=== PATIENT | female | born 1960 | race Caucasian/White ===

== ENCOUNTER 2016-12-31 19:15 | Emergency (ER) | payer OTHER ==
[2016-12-31 19:50] VITALS: BP 104/62
[2016-12-31] MEDS ORDERED: Phenazopyridine TAB* 100 MG PO ONE ×2 (20:51)
[2016-12-31] MEDS ORDERED: Sulfamethox/Trimethoprim DS 800/160* TAB PO ONE ×2 (20:52→20:53)
--- NOTE | 2016-12-31 21:33 | UC ---
Solange Pham Alfonso, scribed for Barrie Orona MD on 12/31/16 at 2047 . Complaint Female HPI - HPI Summary HPI Summary: This patient is a 56 year old F presenting to [facility] with a chief complaint of dysuria since a few hours ago. The CC is described as burning. Pt rates the pain 1/10 in severity. Symptoms aggravated and alleviated by nothing. Pt reports increased urinary frequency, and suprapubic abdominal discomfort. Pt denies abdominal PSHx. Patient medications reviewed this visit. - History Of Current Complaint Chief Complaint: UCGU Stated Complaint: POSS UTI Time Seen by Provider: 12/31/16 20:37 Hx Obtained From: Patient Onset/Duration: Sudden Onset, Lasting Hours - a few, Still Present Timing: Constant Severity Initially: Mild Severity Currently: Mild Pain Intensity: 1 Pain Scale Used: 0-10 Numeric Character: Burning Aggravating Factor(s): Nothing Alleviating Factor(s): Nothing Associated Signs And Symptoms: Negative: Fever - Allergies/Home Medications Allergies/Adverse Reactions: Allergies Allergy/AdvReac Type Severity Reaction Status Date / Time Codeine Allergy Rash And Verified 03/21/16 13:02 Itching Home Medications: Home Medications Adalimumab [Humira] 10 mg SC 12/31/16 [History] Folic Acid TAB* [Folvite TAB*] 1 mg PO DAILY 12/31/16 [History Confirmed ] PMH/Surg Hx/FS Hx/Imm Hx - Surgical History Surgical History: Yes Surgery Procedure, Year, and Place: cysts removal from right thumb 2005, accoustic neuroma removed 1995 - Family History Known Family History: Positive: Other - Prostate cancer, skin cancer Family History: No FHx breast cancer - Social History Alcohol Use: None Substance Use Type: None Smoking Status (MU): Never Smoked Tobacco When Did the Patient Quit Smoking/Using Tobacco: 05/13/91 Household Exposure Type: Cigarettes - Immunization History Most Recent Influenza Vaccination: 2014 Most Recent Tetanus Shot: utd Review of Systems Constitutional: Other - Negative fever Gastrointestinal: Abdominal Pain - Suprapubic abdominal discomfort. Genitourinary: Dysuria - burning, Frequency - Increased All Other Systems Reviewed And Are Negative: Yes Physical Exam Triage Information Reviewed: Yes Appearance: Well-Appearing, No Pain Distress Vital Signs: Initial Vital Signs Temp 99.0 F 12/31/16 19:47 Pulse 80 12/31/16 19:47 Resp 18 12/31/16 19:47 BP 104/62 12/31/16 19:47 Pulse Ox 99 12/31/16 19:47 Vital Signs Reviewed: Yes Eyes: Positive: Other: - EOMI KATY ENT: Positive: Normal ENT inspection Neck: Positive: Supple, Nontender Respiratory: Positive: Chest non-tender, Lungs clear, Normal breath sounds Cardiovascular: Positive: RRR Abdomen Description: Positive: Soft, Other: - Positive minimal RLQ tenderness Bowel Sounds: Positive: Present Musculoskeletal: Positive: Strength Intact, ROM Intact Neurological: Positive: Alert Psychological: Positive: Age Appropriate Behavior Skin Exam: Normal Complaint Female Dx - Course Course Of Treatment: ON EXAM FOUND MINIMAL RLQ TENDERNESS WITHOUT REBOUND. PATIENT REPORTS SHE JUST NOTICED THE RLQ DISCOMFORT. I DISCUSSED THE DDX FOR RLQ PAIN TO INCLUDE KIDNEY STONE AND APPENDICITIS. PATIENT KNOW TO GET SEEN AGAIN IN THE ED IF THE PAIN PERSISTS OR WORSENS. WE DISCUSSED TREATING THE DYSURIA AN UTI AND TO GET RECHECKED IF NOT COMPLETELY IMPROVED. - Differential Dx/Diagnosis Provider Diagnoses: DYURIA AND RLQ PAIN Discharge - Discharge Plan Condition: Stable Disposition: HOME Prescriptions: Phenazopyridine TAB* [Pyridium 100 mg TAB*] 100 mg PO TID PRN #8 tab PRN Reason: Pain Sulfamethox/Trimethoprim DS* [Bactrim DS 800/160 TAB*] 1 tab PO BID #12 tab Patient Education Materials: Acute Abdominal Pain (ED), Dysuria (ED) Referrals: Mely Sharma MD [Primary Care Provider] - Additional Instructions: FOLLOW UP WITH YOUR DOCTOR. GET RECHECKED FOR ANY WORSENING OF YOUR CONDITION; PERSISTENT OR WORSE ABDOMINAL PAIN, FEVER, YOU FEEL ILL OR QUESTIONS OR CONCERNS. The documentation as recorded by the Solange claire Alfonso accurately reflects the service I personally performed and the decisions made by me, Barrie Orona MD.
== END 2016-12-31 21:05 | disposition home or self-care (01) ==
LOC: UCEAST 19:15
DX: R30.0 Dysuria (principal); R10.31 Right lower quadrant pain
CPT/HCPCS: 81003; 99212; A9270-GY; G0463

== ENCOUNTER → 2017-05-06 08:51 | Emergency (ER) | payer OTHER ==
[~2017-05-06 08:51] MED LIST: Meclizine TAB* 12.5 MG PO ONE; NS 0.9% 1000 ML* 1,000 ML IV ONE; Potassium Chlor TAB* 20 MEQ TAB.ER PO ONE
[2017-05-06 10:03] LABS: Hematocrit 42 % (35-47); Hemoglobin 13.7 g/dl (12.0-16.0); Mean Corpuscular HGB Conc 33 g/dl (31-36); Mean Corpuscular Hemoglobin 29 pg (27-31); Mean Corpuscular Volume 88 fL (80-97); Mean Platelet Volume 8 um3 (7.4-10.4); Red Blood Count 4.75 10^6/ul (4.0-5.4); Red Cell Distribution Width 14 % (10.5-15); White Blood Count 5.2 10^3/ul (3.5-10.8)
[2017-05-06 10:14] LABS: ALT 85 U/L (7-52); AST 57 U/L (13-39); Albumin 4.5 g/dL (3.2-5.2); Alkaline Phosphatase 103 U/L (34-104); Anion Gap 6 mmol/L (2-11); BUN/Creatinine Ratio 16.2 (8-20); Blood Urea Nitrogen 12 mg/dL (6-24); C Reactive Protein 1.04 mg/L (< 5.00); CO2 Carbon Dioxide 30 mmol/L (22-32); Calcium 10.1 mg/dL (8.6-10.3); Chloride 101 mmol/L (101-111); Creatine Kinase 40 U/L (10-223); EGFR Non-African American 80.9 (>60); Globulin 3.4 g/dL (2-4); Glucose 79 mg/dL (70-100); Magnesium 1.9 mg/dL (1.9-2.7); Potassium 3.4 mmol/L (3.5-5.0); Sodium 137 mmol/L (133-145); Total Protein 7.9 g/dL (6.4-8.9)
--- NOTE | 2017-05-06 10:24 | RAD ---
INDICATION: Dizziness COMPARISON: Most recent comparison chest x-rays dated March 07, 2016 TECHNIQUE: PA and lateral views of the chest were obtained. FINDINGS: The heart and mediastinum are normal in size and contour. The lungs are grossly clear. There is no evidence of large pleural effusion. Visualized bones are normal for the patient's age. There is no radiographic evidence of free air beneath the diaphragm IMPRESSION: No radiographic evidence of acute cardiopulmonary disease.
--- NOTE | 2017-05-06 10:27 | RAD ---
INDICATION: Dizziness. Relevant surgical history includes "acoustic neuroma removed 1995" COMPARISON: None. TECHNIQUE: Contiguous axial sections of the brain were obtained from the skull base to the vertex without contrast. FINDINGS: The ventricles, cisterns and sulci are within normal limits. The weeks-white matter differentiation is adequately maintained and there is no sulcal effacement. No significant focal abnormality or mass effect is present. There is no evidence for intracranial hemorrhage. No significant focal osseous abnormality is present. The visualized portion of the paranasal sinuses and mastoid air cells appear clear. IMPRESSION: Normal CT of the brain.
[2017-05-06 10:32] LABS: Alcohol < 10 mg/dL (<10)
[2017-05-06 10:46] LABS: TSH (Thyroid Stimulating Horm) 1.25 mcIU/mL (0.34-5.60)
[2017-05-06 11:45] VITALS: BP 106/62
[2017-05-06 11:51] LABS: Benzodiazepine Urine Screen None Detected (None Detect)
[2017-05-06 11:58] LABS: Urine Bacteria Absent (Absent); Urine Bilirubin Negative (Negative); Urine Glucose Negative (Negative); Urine Nitrite Negative (Negative)
--- NOTE | 2017-05-06 15:53 | ED ---
Eliu Pham Abhishek, scribed for Lg Herron MD on 05/06/17 at 0941 . Neurological HPI - HPI Summary HPI Summary: This patient is a 56 year old F presenting to [facility] with a chief complaint of weakness since 2 weeks. She states the chief complain was a sudden onset of weakness on all her extremities. The patient rates the pain 0/10 in severity. Symptoms aggravated by nothing. Symptoms alleviated by remaining in supine position. Patient reports dizziness described as room spinning, blurred vision , chills, and tremors. - History of Current Complaint Chief Complaint: EDWeakness Stated Complaint: DIZZY/LOSS OF BALANCE Time Seen by Provider: 05/06/17 09:27 Hx Obtained From: Patient Onset/Duration: Sudden Onset, Started weeks ago - 2 weeks ago, Still Present Timing: Sudden Onset Pain Intensity: 0 Pain Scale Used: 0-10 Numeric Character: Room Spinning, Dizzy, Other: - Blurred vision Aggravating: Nothing Alleviating: Lying Down Associated Signs and Symptoms: Positive: Visual Changes - blurred vision, Weakness - all her extremities - Allergy/Home Medications Allergies/Adverse Reactions: Allergies Allergy/AdvReac Type Severity Reaction Status Date / Time Codeine Allergy Rash And Verified 03/21/16 13:02 Itching PMH/Surg Hx/FS Hx/Imm Hx Endocrine/Hematology History: Denies: Hx Diabetes Cardiovascular History: Reports: Other Cardiovascular Problems/Disorders - MITRAL VALVE PROLAPSE Denies: Hx Hypertension, Hx Pacemaker/ICD Respiratory History: Denies: Hx Asthma History: Denies: Hx Dialysis, Hx Renal Disease Musculoskeletal History: Reports: Hx Rheumatoid Arthritis Sensory History: Denies: Hx Hearing Aid Psychiatric History: Reports: Hx Panic Disorder - Cancer History Hx Chemotherapy: No Hx Radiation Therapy: No - Surgical History Surgery Procedure, Year, and Place: cysts removal from right thumb 2005, accoustic neuroma removed 1995 Infectious Disease History: No Infectious Disease History: Denies: History Other Infectious Disease, Traveled Outside the [place] in Last 30 Days - Family History Known Family History: Positive: Other - Prostate cancer, skin cancer Family History: No FHx breast cancer - Social History Alcohol Use: None Substance Use Type: Reports: None Smoking Status (MU): Never Smoked Tobacco Review of Systems Positive: Chills Eyes: Negative ENT: Negative Cardiovascular: Negative Gastrointestinal: Negative Genitourinary: Negative Positive: Other - Tremors Skin: Negative Neurological: Other - dizziness described as room spinning", blurred vision Psychological: Normal All Other Systems Reviewed And Are Negative: Yes Physical Exam - Summary Physical Exam Summary: VITAL SIGNS: Reviewed. GENERAL: ~Patient is a well-developed and nourished (MALE OR FEMALE) who is lying comfortable in the stretcher. ~Patient is not in any acute respiratory distress. HEAD AND FACE: No signs of trauma. ~No ecchymosis, hematomas or skull depressions. No sinus tenderness. EYES: PERRLA, EOMI x 2, No injected conjunctiva, no nystagmus. EARS: Hearing grossly intact. Ear canals and tympanic membranes are within normal limits. MOUTH: Oropharynx within normal limits. NECK: Supple, trachea is midline, no adenopathy, no JVD, no carotid bruit, no c- spine tenderness, neck with full ROM. CHEST: Symmetric, no tenderness at palpation LUNGS: Clear to auscultation bilaterally. No wheezing or crackles. CVS: Regular rate and rhythm, S1 and S2 present, no murmurs or gallops appreciated. ABDOMEN: Soft, non-tender. No signs of distention. No rebound no guarding, and no masses palpated. Bowel sounds are normal. EXTREMITIES: FROM in all major joints, no edema, no cyanosis or clubbing. NEURO: Alert and oriented x 3. No acute neurological deficits. Speech is normal and follows commands. SKIN: Dry and warm Triage Information Reviewed: Yes Vital Signs On Initial Exam: Initial Vitals Temp Pulse Resp BP Pulse Ox 98.4 F 101 16 109/67 99 05/06/17 08:55 05/06/17 08:55 05/06/17 08:55 05/06/17 08:55 05/06/17 08:55 Vital Signs Reviewed: Yes - [place] Coma Scale Coma Scale Total: 15 Diagnostics - Vital Signs Vital Signs Temp Pulse Resp BP Pulse Ox 05/06/17 08:55 98.4 F 101 16 109/67 99 - Laboratory Lab Results: Lab Results 05/06/17 05/06/17 05/06/17 Range/Units 09:40 09:40 09:40 WBC 5.2 (3.5-10.8) 10^3/ul RBC 4.75 (4.0-5.4) 10^6/ul Hgb 13.7 (12.0-16.0) g/dl Hct 42 (35-47) % MCV 88 (80-97) fL MCH 29 (27-31) pg MCHC 33 (31-36) g/dl RDW 14 (10.5-15) % Plt Count 252 (150-450) 10^3/ul MPV 8 (7.4-10.4) um3 Neut % (Auto) 60.0 (38-83) % Lymph % (Auto) 31.1 (25-47) % Coffee % (Auto) 7.4 (1-9) % Eos % (Auto) 1.1 (0-6) % Baso % (Auto) 0.4 (0-2) % Absolute Neuts (auto) 3.1 (1.5-7.7) 10^3/ul Absolute Lymphs (auto) 1.6 (1.0-4.8) 10^3/ul Absolute Monos (auto) 0.4 (0-0.8) 10^3/ul Absolute Eos (auto) 0.1 (0-0.6) 10^3/ul Absolute Basos (auto) 0 (0-0.2) 10^3/ul Absolute Nucleated RBC 0 10^3/ul Nucleated RBC % 0 Sodium 137 (133-145) mmol/L Potassium 3.4 L (3.5-5.0) mmol/L Chloride 101 (101-111) mmol/L Carbon Dioxide 30 (22-32) mmol/L Anion Gap 6 (2-11) mmol/L BUN 12 (6-24) mg/dL Creatinine 0.74 (0.51-0.95) mg/dL Est GFR ( Amer) 104.0 (>60) Est GFR (Non-Af Amer) 80.9 (>60) BUN/Creatinine Ratio 16.2 (8-20) Glucose 79 (70-100) mg/dL Calcium 10.1 (8.6-10.3) mg/dL Magnesium 1.9 (1.9-2.7) mg/dL Total Bilirubin 0.40 (0.2-1.0) mg/dL AST 57 H (13-39) U/L ALT 85 H (7-52) U/L Alkaline Phosphatase 103 (34-104) U/L Total Creatine Kinase 40 (10-223) U/L Troponin I 0.00 (<0.04) ng/mL C-Reactive Protein 1.04 (< 5.00) mg/L B-Natriuretic Peptide 11 ( - 100) pg/mL Total Protein 7.9 (6.4-8.9) g/dL Albumin 4.5 (3.2-5.2) g/dL Globulin 3.4 (2-4) g/dL Albumin/Globulin Ratio 1.3 (1-3) TSH 1.25 (0.34-5.60) mcIU/mL Serum Alcohol < 10 (<10) mg/dL Result Diagrams: 05/06/17 09:40 05/06/17 09:40 Lab Statement: Any lab studies that have been ordered have been reviewed, and results considered in the medical decision making process. - Radiology Chest X-ray Radiology Interpretation Completed By: Radiologist - CXR reveals, per radiologist, No radiographic evidence of acute cardiopulmonary disease. ED physician has reviewed this radiology report and agrees. - CT Brain CT CT Interpretation Completed By: Radiologist - Brain CT reveals Normal CT of the brain. ED physician has reviewed this radiology report and agrees. - EKG 1009 EKG Interpretation: An EKG at 1009 reveals sinus rhythm, No st elevation, normal axis at 74 bpm Course/Dx - Course Assessment/Plan: In the ED course an IV access was obtained. Patient was placed in a teletypesetter monitor. Patient was started with IV fluids for hydration and Meclizine for dizziness. Labs without any significant abnormality except for slight increase in the LFTs. Troponin #1: 0.00. EKG shows a NSR at 74 BPM. No STEMI. CXR impression: No acute pathology. Head CT impression: no acute pathology. After medication and hydration all symptoms have improved. At this point I discussed all the findings and test results with the patient and patient s parents. They were instructed to return to the emergency room immediately if any of the symptoms return or worsens. They understand and agree. Neurological exam before discharge: Patient is alert and oriented x 3. No acute neurological deficits. Patient vital signs are stable. Patient is to follow up with the agent telegrapher in the next 2 3 days. They understand and agree. Plan of care was discussed with the patient and patient understands and agrees with the plan of care. All questions were answered at patient satisfaction. There were no further complaints or concerns. - Differential Dx Differential Diagnoses Neuro: Positive: Anxiety, Meniere's, Other - Vertigo, Dizziness, - Diagnoses Provider Diagnoses: Vertigo Discharge - Discharge Plan Condition: Stable Disposition: HOME Prescriptions: Meclizine TAB* [Antivert 12.5 TAB*] 25 mg PO TID PRN #30 tab PRN Reason: Pain Patient Education Materials: Vertigo (ED) Referrals: Mely Sharma MD [Primary Care Provider] - (Follow up with PCP as needed) The documentation as recorded by the Eliu claire Abhishek accurately reflects the service I personally performed and the decisions made by , Lg Herron MD.
== END | disposition home or self-care (01) ==
LOC: ED 08:51
DX: R42 Dizziness and giddiness (principal); R53.1 Weakness; H53.8 Other visual disturbances
CPT/HCPCS: 36415; 70450; 71020; 80053; 80307; 80320; 81003; 81015; 82550; 83735; 83880; 84443; 84484; 85025; 86140; 93005; 99283; A9270-GY; G0480

== ENCOUNTER 2017-09-12 11:12 | Emergency (ER) | payer OTHER ==
[2017-09-12 12:00] VITALS: BP 108/59
--- NOTE | 2017-09-12 13:39 | UC ---
Back Pain HPI - HPI Summary HPI Summary: [facility]. Patient has noticed her urine being dark in color from time to time. Patient is concerned she has a urinary tract infection. Patient denies pain burning urgency frequency fevers chills nausea or signs and symptoms of urinary tract infection - History of Current Complaint Chief Complaint: UCBackPain Stated Complaint: BACK PAIN, DARK URINE Time Seen by Provider: 09/12/17 13:36 Hx Obtained From: Patient Hx Last Menstrual Period: post ?: No Onset/Duration: Sudden Onset Timing: Constant Severity Initially: Severe Severity Currently: Severe Pain Intensity: 10 Pain Scale Used: 0-10 Numeric Back Pain: Is Discrete @ - Right SI joint Character: Aching Aggravating Factor(s): Movement, Lifting, Bending Alleviating Factor(s): Nothing Associated Signs And Symptoms: Positive: Negative - Allergies/Home Medications Allergies/Adverse Reactions: Allergies Allergy/AdvReac Type Severity Reaction Status Date / Time codeine Allergy Rash And Verified 09/12/17 12:00 Itching Home Medications: Home Medications Leflunomide 1 tab PO DAILY 09/12/17 [History Confirmed 09/12/17] PMH/Surg Hx/FS Hx/Imm Hx Previously Healthy: No - rheumatoid arthritis, insomnia - Surgical History Surgical History: Yes Surgery Procedure, Year, and Place: cysts removal from right thumb 2005, accoustic neuroma removed 1995 - Family History Known Family History: Positive: Other - Prostate cancer, skin cancer Family History: No FHx breast cancer - Social History Occupation: Employed Full-time Lives: With Family Alcohol Use: None Substance Use Type: None Smoking Status (MU): Never Smoked Tobacco When Did the Patient Quit Smoking/Using Tobacco: 05/13/91 Household Exposure Type: Cigarettes - Immunization History Most Recent Influenza Vaccination: 2014 Most Recent Tetanus Shot: utd Review of Systems Constitutional: Negative Skin: Negative Eyes: Negative ENT: Negative Respiratory: Negative Cardiovascular: Negative Gastrointestinal: Negative Genitourinary: Negative Motor: Negative Neurovascular: Negative Musculoskeletal: Arthralgia - Right SI joint no radiation into the buttock. Area is tender to touch has been going on for weeks Neurological: Negative Psychological: Negative Is Patient Immunocompromised?: No All Other Systems Reviewed And Are Negative: Yes Physical Exam Triage Information Reviewed: Yes Appearance: Well-Appearing, No Pain Distress, Well-Nourished Vital Signs: Initial Vital Signs Temp 97.9 F 09/12/17 11:53 Pulse 81 09/12/17 11:53 Resp 16 09/12/17 11:53 BP 108/59 09/12/17 11:53 Pulse Ox 98 09/12/17 11:53 Vital Signs Reviewed: Yes Eye Exam: Normal Eyes: Positive: Conjunctiva Clear ENT Exam: Normal ENT: Positive: Normal ENT inspection, Hearing grossly normal. Negative: Trismus , Hoarse voice, Dental tenderness Dental Exam: Normal Neck exam: Normal Neck: Positive: Supple, Nontender Respiratory Exam: Normal Respiratory: Positive: Chest non-tender, Lungs clear, Normal breath sounds, No respiratory distress, No accessory muscle use Cardiovascular Exam: Normal Cardiovascular: Positive: RRR, No Murmur, Pulses Normal, Brisk Capillary Refill Abdominal Exam: Normal Abdomen Description: Positive: Nontender, No Organomegaly. Negative: CVA Tenderness (R), CVA Tenderness (L) Bowel Sounds: Positive: Present Musculoskeletal Exam: Normal Musculoskeletal: Positive: Strength Intact, ROM Intact, No Edema Neurological Exam: Normal Neurological: Positive: Alert, Muscle Tone Normal Psychological Exam: Normal Skin Exam: Normal Diagnostics - Laboratory Diagnostic Studies Completed/Ordered: UA all normal except for trace leukocytes will culture for completeness Back Pain Course/Dx - Course Course Of Treatment: Patient will be given a shot of Toradol she'll be sent home assignment jaw dose pack she'll be given referral for physical therapy. 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 We'll also culture urine - Differential Dx/Diagnosis Provider Diagnoses: sciatica (R) Discharge - Sign-Out/Discharge Documenting (check all that apply): Discharge - Discharge Plan Condition: Stable Disposition: HOME Prescriptions: methylPREDNISolone [Medrol] 4 mg PO .PER DELICIA #1 delicia Patient Education Materials: Sciatica (ED), Lower Back Exercises (ED) Forms: *Work Release Referrals: Mely Sharma MD [Primary Care Provider] - 4 Days - Billing Disposition and Condition Condition: STABLE Disposition: HOME
[2017-09-12] MEDS ORDERED: Ketorolac INJ* 60 MG/2 ML VIAL IM ONE (13:43)
--- NOTE | 2017-09-14 16:18 | UC ---
- Progress Note Progress Note: Please call patient and see how she is feeling. If she has any pain or urinary tract and symptoms please ask her to get rechecked her urine culture came back looking like mixed nora and not definitive for urinary tract infection Discharge - Sign-Out/Discharge Documenting (check all that apply): Post-Discharge Follow Up - Discharge Plan Condition: Stable Disposition: HOME Prescriptions: methylPREDNISolone [Medrol] 4 mg PO .PER DELICIA #1 delicia Patient Education Materials: Sciatica (ED), Lower Back Exercises (ED) Forms: *Work Release Referrals: Mely Sharma MD [Primary Care Provider] - 4 Days - Billing Disposition and Condition Condition: STABLE Disposition: HOME
== END 2017-09-12 14:01 | disposition home or self-care (01) ==
LOC: UCEAST 11:12
DX: M54.41 Lumbago with sciatica, right side (principal); M06.9 Rheumatoid arthritis, unspecified; G47.00 Insomnia, unspecified; Z88.5 Allergy status to narcotic agent; Z87.891 Personal history of nicotine dependence
CPT/HCPCS: 81003; 87077; 87086; 87186; 96372; 99212; G0463; J1885

== ENCOUNTER 2019-10-14 11:19 | Emergency (ER) | payer OTHER ==
[2019-10-14 11:45] VITALS: BP 108/57
== END 2019-10-14 12:30 | disposition short-term general hospital (02) ==
LOC: UCEAST 11:19

== ENCOUNTER 2019-10-14 13:01 | Emergency (ER) | payer OTHER ==
[2019-10-14 14:24] LABS: Urine Appearance Clear; Urine Bilirubin Negative (Negative); Urine Blood Negative (Negative); Urine Color Straw; Urine Glucose Negative (Negative); Urine Ketones Negative (Negative); Urine Nitrite Negative (Negative); Urine Protein Negative (Negative); Urine Urobilinogen Negative (Negative)
[2019-10-14 14:34] LABS: ABS Lymphocytes 2.3 10^3/ul (1.0-4.8); ABS Monocytes 0.3 10^3/ul (0-0.8); Eosinophil % 0.8 %; Hematocrit 40 % (35-47); Lymphocyte % 45.6 %; Mean Corpuscular HGB Conc 33 g/dL (31-36); Mean Corpuscular Hemoglobin 29 pg (27-31); Mean Corpuscular Volume 89 fL (80-97); Mean Platelet Volume 8.9 fL (7.4-10.4); Nucleated Red Blood Cells % 0.1; Platelet Count 246 10^3/uL (150-450); Red Blood Count 4.46 10^6 /uL (3.70-4.87); Red Cell Distribution Width 13 % (10-15); White Blood Count 5.1 10^3/uL (3.5-10.8)
[2019-10-14 14:52] LABS: CKMB ng/mL 1.3 ng/mL (0.6-6.3)
[2019-10-14 14:58] LABS: Albumin 4.7 g/dL (3.2-5.2); Albumin/Globulin Ratio 1.6 (1-3); BUN/Creatinine Ratio 29.7 (8-20); Calcium 9.8 mg/dL (8.6-10.3); EGFR African American 114.9 (>60); Potassium 3.7 mmol/L (3.5-5.0); Total Bilirubin 0.3 mg/dL (0.2-1.0); Total Protein 7.7 g/dL (6.4-8.9)
[2019-10-14] MEDS ORDERED: Iohexol 350 (CONTRAST) 500 ML MDV IV ONE (15:40)
[2019-10-14 16:49] VITALS: BP 111/64
== END 2019-10-14 17:01 | disposition home or self-care (01) ==
LOC: ED 13:01